=== PATIENT | female | born 1990 | race Caucasian/White ===

== ENCOUNTER 2018-09-01 20:42 | Emergency (ER) | payer OTHER ==
[~2018-09-01] VITALS: Ht 157.5 cm; Wt 50.8 kg
[2018-09-01 21:34] LABS: ABSOLUTE EOSINOPHILS 0.3 thou/uL (0.0-0.7); ABSOLUTE LYMPHOCYTES 2.8 thou/uL (0.8-5.3); ABSOLUTE MONOCYTES 0.8 thou/uL (0.0-1.2); ABSOLUTE NEUTROPHILS 6.1 thou/uL (1.6-8.1); BASOPHILS 0.4 %; EOSINOPHILS 2.6 %; HEMATOCRIT 40.2 % (37.0-47.0); HEMOGLOBIN 13.3 gm/dL (12.0-15.0); LYMPHOCYTES 28.2 %; MCH 28.5 pg (26.0-34.0); MCHC 33.1 g/dL (28.0-37.0); MCV 86.2 fL (80.0-100.0); MONOCYTES 7.9 %; MPV 7.3 fl. (7.2-11.1); NUCLEATED RBCS 0 /100WBC; PLATELET COUNT* 332 thou/uL (150-400); POLYS 60.9 %; RBC 4.66 mil/uL (4.20-5.00); RDW-CV 12.9 % (10.5-14.5); WBC 9.9 thou/uL (4.0-11.0)
[2018-09-01 21:42] LABS: ANION GAP 7 mmol/L (7-16); BUN 12 mg/dL (7-18); CALCIUM 8.6 mg/dL (8.5-10.1); CHLORIDE 105 mmol/L (98-107); CO2 29 mmol/L (21-32); CREATININE 0.7 mg/dL (0.6-1.3); GLUCOSE 93 mg/dL (70-99); SODIUM 141 mmol/L (136-145)
[2018-09-01 21:49] LABS: ALBUMIN 3.6 g/dL (3.4-5.0); ALKALINE PHOSPHATASE 81 U/L (46-116); SGOT 10 U/L (15-37); SGPT 12 U/L (30-65); TOTAL BILIRUBIN 0.2 mg/dL (<0.1-1.0); TROPONIN-I LEVEL <0.06 ng/mL (<0.06)
[2018-09-01] MEDS ORDERED: IBU600 MG PO (22:00)
[2018-09-01] MEDS ORDERED: MEDROLDOSEPACK PO (22:00)
[2018-09-01 22:16] VITALS: BP 123/82
== END 2018-09-01 22:17 | disposition home or self-care (01) ==
LOC: M.ERS 20:42
PROVIDERS: Nurse Practitioner Family
DX: R07.89 Other chest pain (principal); Z90.49 Acquired absence of other specified parts of digestive tract